=== PATIENT | male | born 1975 | race Hispanic/Latino ===

== ENCOUNTER 2019-07-05 10:30 | Inpatient (IN) | payer OTHER ==
[2019-07-05 10:55] LABS: #Eosinphils 0.1 thou/uL (0.0-0.7); #Lymphocytes 1.6 thou/uL (1.20-3.40); #Monocytes 0.8 thou/uL (0.11-0.59); #Neutrophils 6.8 thou/uL (1.40-6.50); %Basophils 0.5 % (0.0-1.0); %Eosinophils 1.3 % (0.0-10.0); %Lymphocytes 17.4 % (21.0-51.0); %Monocytes 8.2 % (0.0-10.0); %Neutrophils 72.6 % (42.0-75.0); Hemoglobin 15.7 g/dL (14.0-18.0); Mean Corpuscular HGB CONC 34.1 g/dL (32.0-36.0); Mean Corpuscular Hemoglobin 29.3 pg (27.0-31.0); Mean Corpuscular Volume 86.2 fL (78.0-98.0); Mean Platelet Volume 7.2 fL (7.4-10.4); Platelet Count 272 thou/uL (130-400); RBC Distribution Width 11.6 % (11.5-14.5); Red Blood Cell (RBC) Count 5.35 mill/uL (4.70-6.10); White Blood Cell (WBC) Count 9.3 thou/uL (4.8-10.8)
[2019-07-05 11:17] LABS: Acetaminophen Less than 6.0 mcg/mL (10.0-30.0); Alcohol Less than 10 mg/dL (Less than 10); Salicylate Less than 8.0 mg/dL (15.0-30.0)
[2019-07-05 11:18] LABS: ALT (SGPT) 14 U/L (8-55); AST (SGOT) 9 U/L (5-34); Albumin 4.2 g/dL (3.5-5.0); Alkaline Phosphatase 125 U/L (40-110); Anion Gap 11 mmol/L (10-20); BUN (Urea Nitrogen) 6 mg/dL (8.9-20.6); Bilirubin, Total 0.6 mg/dL (0.2-1.2); Calc. Creatinine Clearance 0 mL/min (70-130); Calcium 9.3 mg/dL (7.8-10.44); Carbon Dioxide 31 mmol/L (22-29); Chloride 102 mmol/L (98-107); Estimated GFR-MDRD Greater than 90; Globulin 2.8 g/dL (2.4-3.5); Glucose 103 mg/dL (70-105); Potassium 3.9 mmol/L (3.5-5.1); Sodium 140 mmol/L (136-145)
[2019-07-05 11:31] LABS: Bilirubin Negative (Negative); Blood, Urine Negative (Negative); Clarity Clear (Clear); Glucose, Urine (Dipstick) Normal (Negative); Leukocyte Negative Leu/uL (Negative); Nitrite Negative (Negative); Protein, Urine (Dipstick) Negative (Neg-Trace)
--- NOTE | 2019-07-05 11:38 | CT ---
CT head noncontrast HISTORY: Slurred speech. Weakness. Prior surgery. No comparison available. FINDINGS: A large ill-defined area of decreased density within the right cerebellar hemisphere and po sterior aspect of the right side of the jenaro results in distortion of the right side of the fourth ventricle. A central area of slightly increased density measures up to 3.7 cm. Postoperative changes of the left occiput, left mastoid area, and left cerebellar hemisphere evident. No acute intracranial hemorrhage is apparent. Right frontal ventriculostomy catheter extends into the right lateral ventricle. Ventricular system is decompressed. Septum pellucidum is midline. IMPRESSION: Postoperative changes of the posterior fossa. While the abnormality of the right cerebral hemisphere could be related to compensatory expansion due to volume loss of the left cerebellar hemisphere, the appearance is concerning for an underlying mass. Please consider MRI brain, without a nd with gadolinium contrast, for better characterization. Findings were called to Dr. Agustin in the emergency department at 1131 hours. Code CR.
[2019-07-05] MEDS ORDERED: Magnevist 469MG/ML 20 ML VIAL ONE (11:43)
[2019-07-05 11:50] LABS: Amphetamine Not Detected (NotDetected); Barbiturates Screen Not Detected (NotDetected); Benzodiazepine Screen Not Detected (NotDetected); Cocaine Metabolite Screen Not Detected (NotDetected); Medtox Control Line Valid? VALID (VALID); Medtox Reader # READER 4; Methadone Not Detected (NotDetected); Methamphetamine Not Detected (NotDetected); Opiate Screen Not Detected (NotDetected); Oxycodone Screen Not Detected (NotDetected); Phencyclidine (PCP) Not Detected (NotDetected); THC/Cannabinoid Screen Not Detected (NotDetected); Tricyclic Screen Not Detected (NotDetected)
--- NOTE | 2019-07-05 13:57 | MRI ---
MRI BRAIN WITH AND WITHOUT IV CONTRAST: HISTORY: Slurred speech. Increasing left sided weakness. The patient has a history of brain tumor and removal several years ago. CORRELATION: CT scan from the same date. FINDINGS: Postop changes in the left occipital mastoid and cerebellar region with a postop fluid collection are seen. There is right frontal ventriculostomy shunt tubing. There is a heterogeneously enhancing mass involving the right cerebellar hemisphere and right side of the jenaro, measuring 5.3 x 4 x 2.8 cm with enhancing small satellite nodules in the vermis. There are also tiny foci of contrast enhancement in the occipital lobe, likely vascular. The right cerebellar pontine mass has internal foci of T2 prolongation and surrounding vasogenic edema. No hydronephrosis is seen. IMPRESSION: Findings are consistent with tumor recurrence in the posterior fossa with mass effect on the fourth v entricle and mid brain. Discussed over the telephone with ER physician, Dr. Pietro Agustin, at 1:11 p.m. KIRAN CURRIE POS: TENZIN
--- NOTE | 2019-07-05 16:16 | PDOC.FPRHP ---
- History of Present Illness Chief Complaint: slurred speech History of Present Illness: Patient is a 43M with PMHx of HTN that presented to the ED for slurred speech. He states that he started to notice slurred speech about 1 month ago and it has gradually worsened, especially within the last 3 days. He also reports that feelings of unsteadiness on his feet began after his slurred speech, but it has also been exacerbated for the last 3 days as well. He explains it as talking "like I'm drunk" and walking "like I'm drunk." Reports associated dizziness, and recent posterior occipital headaches. Denies n/v/d. Denies incontinence, any new-onset motor or sensory deficits. Denies difficulty breathing or swallowing, though does report some swelling of his gums on the left. Reports gradual vision deficits over the past few months, but he is supposed to be wearing glasses and does not have them. Saw Dr. Morales at [facility] last month, where an MRI brain was ordered for symptoms of slurred speech. Patient reports that MRI is scheduled for next week. Per patient he had a cerebellar tumor removed 8 years ago in [place], though does not recall what anyone told him about the type of tumor. - Home Medications Medication Instructions Recorded Confirmed Type Amlodipine [Norvasc] 10 mg PO DAILY 07/05/19 07/05/19 History Lisinopril 5 mg PO DAILY 07/05/19 07/05/19 History Meclizine HCl 12.5 mg PO DAILY 07/05/19 07/05/19 History - History PMHx: HTN, HLD PSHx: cerebellar tumor removal 8 years ago FHx: no family hx of brain cancer Social: occasional etoh use, non-smoker, no drug use - Review of Systems General: denies: fever/chills, weight/appetite/sleep changes Eyes: reports: vision changes. denies: eye pain ENT: denies: nasal congestion, rhinorrhea Respiratory: denies: cough, shortness of breath Cardiovascular: denies: chest pain, edema Gastrointestinal: denies: nausea, vomiting, diarrhea Genitourinary: denies: incontinence, polyuria Skin: denies: jaundice, itching Musculoskeletal: denies: tenderness, stiffness Neurological: denies: syncope, seizure Psychological: denies: anxiety, depression - Vital signs [BP: 121/77] HR: [73] RR: [15] Tmax: [98.3] Pox: [93]% on [RA] Wt: [99.4kg] - Physical Exam Constitutional: NAD, awake, alert and oriented HEENT: EOMI, MMM Neck: supple, FROM Chest: no-tender to palpation, no lesions Heart: RRR, normal S1/S2 Lungs: CTAB, no respiratory distress Abdomen: soft, non-tender Musculoskeletal: normal structure, ROM grossly normal Neurological: normal sensation, other (decreased heel-dejesus left leg, poor finger -nose pass-pointing, good alternating movements) Skin: no rash/lesions, good turgor Heme/Lymphatic: no unusual bruising or bleeding, no purpura Psychiatric: normal mood and affect, good judgment and insight FMR H&P: Results - Labs Result Diagrams: 07/05/19 10:46 07/05/19 10:46 Lab results: WBC 9.3 thou/uL (4.8-10.8) 07/05/19 10:46 Hgb 15.7 g/dL (14.0-18.0) 07/05/19 10:46 Hct 46.1 % (42.0-52.0) 07/05/19 10:46 MCV 86.2 fL (78.0-98.0) 07/05/19 10:46 Plt Count 272 thou/uL (130-400) 07/05/19 10:46 Neutrophils % 72.6 % (42.0-75.0) 07/05/19 10:46 Sodium 140 mmol/L (136-145) 07/05/19 10:46 Potassium 3.9 mmol/L (3.5-5.1) 07/05/19 10:46 Chloride 102 mmol/L (98-107) 07/05/19 10:46 Carbon Dioxide 31 mmol/L (22-29) H 07/05/19 10:46 BUN 6 mg/dL (8.9-20.6) L 07/05/19 10:46 Creatinine 0.79 mg/dL (0.7-1.3) 07/05/19 10:46 Glucose 103 mg/dL (70-105) 07/05/19 10:46 Calcium 9.3 mg/dL (7.8-10.44) 07/05/19 10:46 Total Bilirubin 0.6 mg/dL (0.2-1.2) 07/05/19 10:46 AST 9 U/L (5-34) 07/05/19 10:46 ALT 14 U/L (8-55) 07/05/19 10:46 Alkaline Phosphatase 125 U/L (40-110) H 07/05/19 10:46 Serum Total Protein 7.0 g/dL (6.0-8.3) 07/05/19 10:46 Albumin 4.2 g/dL (3.5-5.0) 07/05/19 10:46 Urine Ketones Negative mg/dL (Negative) 07/05/19 10:51 Urine Blood Negative (Negative) 07/05/19 10:51 Urine Nitrite Negative (Negative) 07/05/19 10:51 Ur Leukocyte Esterase Negative Shannon/uL (Negative) 07/05/19 10:51 - Radiology Interpretation CT scan - head Status: report reviewed by me (postop changes of posterior fossa, right cerebral hemisphere changes suspicious for mass) MRI - head Status: report reviewed by me (tumor recurrence in the posterior fossa, mass effect on fourth ventricle and midbrain) FMR H&P: A/P - Problem List (1) Neoplasm of posterior cranial fossa Current Visit: Yes Status: Acute Code(s): D49.6 - NEOPLASM OF UNSPECIFIED BEHAVIOR OF BRAIN (2) HTN (hypertension) Current Visit: Yes Status: Chronic Code(s): I10 - ESSENTIAL (PRIMARY) HYPERTENSION (3) HLD (hyperlipidemia) Current Visit: Yes Status: Chronic Code(s): E78.5 - HYPERLIPIDEMIA, UNSPECIFIED - Plan Patient is a 43M with 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 Fernandez, consulted by ED physician; stated he would see physician in the am; appreciate recs -q2h neuro checks -no signs of edema on brain MRI, but if patient's neuro exam changes consider starting 4mg decadron TID #HTN -continue home meds #HLD -not on home meds at this time DVT ppx: SCDs Dispo: inpatient for neurologic monitoring, neurosx consult in am for possible sx Code: Full PCP: Jah DANIELS H&P: Upper Level - Plan Date/Time: 07/05/19 1616 I, Cricket Campbell pgy2, have evaluated this patient and agree with findings/ plan as outlined by production intern resident. Pertinent changes/additions are listed here. 43yo M with pmh of previous posterior fossa tumor s/p excision 5 years ago presents with 3 days of slurred speech. Was seen in outpt setting and had brain MRI scheduled. In ED MRI shows recurrence of tumor. On exam vitals are stable, neuro exam consistent with exam as documented by production intern above. Otherwise exam was unremarkable. Will admit to stroke unit. Kristin has been consulted from the ED. Will await his much appreciated recommendations. Otherwise will continue home medications for HTN and have neurochecks [id number]. If pt should begin to show signs of cerebral edema/neuro changes recommend decadron 4mg TID and notify neurosurg.
--- NOTE | 2019-07-05 17:03 | PRG ---
DATE OF SERVICE: 07/05/2019 CHIEF COMPLAINT: Headaches, slurred speech, disequilibrium in a patient with history of posterior fossa brain tumor. HISTORY OF PRESENT ILLNESS: Too Royal is a 43-year-old man who presented to our ER with at least 3 days of slurred speech, disequilibrium, and posterior headache. He states he had a brain tumor removed in [place], [place] about 8 years ago. He had been scheduled as an outpatient for an MRI, but this had not yet been accomplished. In the event, he presented to our ER with these above complaints with subsequent MRI findings of a recurrent posterior fossa tumor. He has been admitted for further workup and evaluation per Neurosurgery. OBJECTIVE: GENERAL: He is awake and alert. VITAL SIGNS: His blood pressure is 120/90, his pulse rate is 80 and regular, respirations are 18. He is afebrile. His room air O2 saturation is 94. EAR, NOSE, AND THROAT: No erythema or exudate. NECK: Supple. CARDIAC: Heart rhythm regular. No gallop or murmur noted. LUNGS: Clear. No rales or wheezes. ABDOMEN: Flat and soft without guarding, rebound, or rigidity. NEUROLOGIC: He has slurred speech. He has abnormal gait testing as well as abnormal cbfh-dq-[id number] testing and nqhnpq-tu-[id number] testing. His gait is staggering and wide-based. His Todd Coma Scale is 15. LABORATORY DATA: CBC: White count is 9300, hemoglobin 15.7, hematocrit 46.1, MCV of 86. Chemistry: Sodium 140, potassium 3.9, chloride 102, bicarb 31, BUN 6, creatinine 0.79. Brain MRI findings are consistent with a tumor recurrence in the posterior fossa with mass effect on the fourth ventricle and midbrain. Neurosurgery has been informed and will see the patient in the morning. ASSESSMENT: Recurrent brain tumor. PLAN: As above with neurosurgical consultation. No indication at this time for Decadron unless patient has a deterioration or severe headache. Job ID: [id number]
[2019-07-05] MEDS ORDERED: Acetaminophen 325 MG TAB PO PRN ×2 (18:19→18:55)
[2019-07-05] MEDS ORDERED: Ondansetron PF 4 MG/2 ML Vial IVP PRN (18:19)
[2019-07-05] MEDS ORDERED: Ondansetron ODT 4 MG TAB SL PRN (18:19)
[2019-07-05] MEDS ORDERED: Ondansetron ODT 4 MG TAB PO PRN (18:55)
[2019-07-05 19:17] VITALS: BMI 29.3
--- NOTE | 2019-07-06 05:23 | PDOC.FM ---
- Subjective Subjective: Patient doing well this morning. Motor and sensation intact. Patient continues to have slurred speech. Denies difficulty with breathing. Discussed plans for neurosurgery to come by today to discuss future plan of care, patient agreeable. - Objective Vital Signs & Weight: Vital Signs (12 hours) Temp Pulse Resp BP BP Pulse Ox 07/06/19 04:00 97.6 F 71 16 130/80 92 L 07/06/19 00:00 98.0 F 73 16 108/58 L 97 07/05/19 20:00 97.9 F 74 16 127/90 94 L 07/05/19 18:10 97.8 F 78 16 139/81 96 Weight Weight 98.146 kg Result Diagrams: 07/06/19 04:59 07/06/19 04:59 Phys Exam - Physical Examination Constitutional: NAD HEENT: moist MMs, sclera anicteric Neck: supple, full ROM Respiratory: no wheezing, clear to auscultation bilateral Cardiovascular: RRR, no significant murmur Gastrointestinal: soft, non-tender Musculoskeletal: no edema, pulses present Neurological: normal sensation, moves all 4 limbs slurred speech Psychiatric: normal affect, A&O x 3 Skin: no rash, normal turgor Dx/Plan (1) Neoplasm of posterior cranial fossa Code(s): D49.6 - NEOPLASM OF UNSPECIFIED BEHAVIOR OF BRAIN Status: Acute (2) HTN (hypertension) Code(s): I10 - ESSENTIAL (PRIMARY) HYPERTENSION Status: Chronic (3) HLD (hyperlipidemia) Code(s): E78.5 - HYPERLIPIDEMIA, UNSPECIFIED Status: Chronic - Plan Plan: Patient is a 43M with 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 Fernandez, consulted by ED physician; plans to see patient today; appreciate recs -q2h neuro checks -no signs of edema on brain MRI, neuro exam stable overnight; but if patient's neuro exam changes consider starting 4mg decadron TID #HTN -continue home meds #HLD -not on home meds at this time DVT ppx: SCDs Dispo: inpatient for neurologic monitoring, neurosx consult today for possible sx, appreciate recs Code: Full PCP: Jah
[2019-07-06 05:25] LABS: #Basophils 0.1 thou/uL (0.0-0.2); #Eosinphils 0.4 thou/uL (0.0-0.7); #Lymphocytes 2.8 thou/uL (1.20-3.40); #Monocytes 0.9 thou/uL (0.11-0.59); #Neutrophils 5.6 thou/uL (1.40-6.50); %Basophils 0.7 % (0.0-1.0); %Eosinophils 3.8 % (0.0-10.0); %Lymphocytes 28.7 % (21.0-51.0); %Monocytes 9.3 % (0.0-10.0); %Neutrophils 57.4 % (42.0-75.0); Hemoglobin 15.2 g/dL (14.0-18.0); Mean Corpuscular Hemoglobin 29.6 pg (27.0-31.0); Mean Corpuscular Volume 86.9 fL (78.0-98.0); Mean Platelet Volume 7.3 fL (7.4-10.4); Platelet Count 266 thou/uL (130-400); RBC Distribution Width 11.6 % (11.5-14.5); Red Blood Cell (RBC) Count 5.15 mill/uL (4.70-6.10); White Blood Cell (WBC) Count 9.7 thou/uL (4.8-10.8)
[2019-07-06 05:43] LABS: Anion Gap 9 mmol/L (10-20); BUN (Urea Nitrogen) 8 mg/dL (8.9-20.6); Calc. Creatinine Clearance 172 mL/min (70-130); Carbon Dioxide 32 mmol/L (22-29); Chloride 101 mmol/L (98-107); Estimated GFR-MDRD Greater than 90; Glucose 127 mg/dL (70-105); Potassium 3.7 mmol/L (3.5-5.1); Sodium 138 mmol/L (136-145)
[2019-07-06] MEDS: Lisinopril 5 MG TAB PO SCH (08:38)
[2019-07-06] MEDS: Amlodipine 10 MG TAB PO SCH (08:38)
--- NOTE | 2019-07-06 10:51 | PRG ---
DATE OF SERVICE: 07/06/2019 I have examined the patient. I have discussed the case with Dr. Joelle Cruz, and agree with her assessment and plan. Job ID: [id number]
--- NOTE | 2019-07-06 14:16 | CON ---
DATE OF CONSULTATION: REFERRAL: Family Medicine, Dr. Cruz. REASON FOR EVALUATION: Cerebellar lesion. HISTORY OF PRESENT ILLNESS: Too Royal is a pleasant 43-year-old gentleman, referred to our Neurosurgery Service because of new discovery of a right cerebellar lesion. Because there is some difficulty with cerebellar dysarthria, much of the information is obtained by his significant other who is at his bedside as well as records both in the [place] and the [facility]. 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 It was during his incarceration that he began experiencing some incoordination involving the left side of his body and was eventually sent for an ER evaluation at a [facility] in [place]. There, he was admitted and MR imaging revealed a contrast-enhancing lesion deep in the left cerebellar hemisphere. Because of the jail contract system, he was sent from [facility] to [facility] in [place] for further care. I do not have those records. I surmise from other imaging studies that he had a craniectomy at [facility] and removal of the left cerebellar lesion sometime in late September or October of 2014. Although, I am not privy to these records, I suspect there was some form of radiation and/or chemotherapy, but that is a guess. The patient does not remember. He does recall being in the inpatient rehabilitation facility for a week or more recovering from his operation. He does not recall whether he got radiation or chemotherapy. He does not recall the histopathological diagnosis. Words like astrocytoma and medulloblastoma and metastases are not ringing a hughes. After his craniectomy, tumor resection, rehabilitation, and other treatment, he went home rather than back to his jail facility. For the last 4 years, he has remained at home. He has not been able to be employed because of persistent cerebellar deficits. He was eventually able to walk without a walker and sometimes without a cane, but he remained unsteady. It is on top of this unsteadiness that he had some deterioration over the last 3 months to the point where it has become unsafe for him to walk. He also has some difficulty getting words out. Because of the new deficits, he was brought to our emergency department, where CT and MR examination revealed a contrast-enhancing lesion in the right cerebellar hemisphere that extended through the deep nuclei of the right cerebellum and into the middle cerebellar peduncle and the posterior aspect of the jenaro. The discovery of this new lesion prompted a neurosurgical consultation. Overnight, the steroids have helped. Mr. Royal is hungry and would like to eat. PAST MEDICAL HISTORY: 1. Left cerebellar tumor. 2. Hypertension. 3. Hyperlipidemia. PAST SURGICAL HISTORY: A left suboccipital craniectomy and tumor resection in September or October 2014 at [facility]. MEDICATIONS: 1. Amlodipine. 2. Lisinopril. 3. Meclizine. Currently on Decadron in the hospital. ALLERGIES: NO KNOWN DRUG ALLERGIES. FAMILY HISTORY: There is no family history of genetic tumor syndromes. SOCIAL HISTORY: Mr. Royal lives with a significant other. The two of them have been together for the last 3 years. He is not employed and is disabled from his previous cerebellar tumor and therapy. He does drink alcohol from [id number], but is denies any current drug use or nicotine exposure. He is a former hernandez of the [facility]. REVIEW OF SYSTEMS: Otherwise, negative. PHYSICAL EXAMINATION: GENERAL: Mr. Royal is 6 feet tall. He weighs 216 pounds. VITAL SIGNS: His temperature is 97.6 degrees Fahrenheit. His current blood pressure is 119/76. NEUROLOGIC: Mr. Royal is awake on his examination. He has a cerebellar dysarthria that prevents him from speaking in a coordinated fashion, but he does express some ideas well and a few words at a time. The visual lawrence are full. The extraocular muscles moves the eyes in all directions. The primary gaze with left and right and gaze nystagmus. The face is sensate and symmetric. There is hearing to finger rub bilaterally. The palate elevates in the midline. The Tongue protrudes in the midline. The head turn is strong. On motor examination, the large muscle groups are quite strong. There is incoordination with dysmetria that is significant on the right and less significant on the left. There is no neglect. There is no lateralizing sensory loss. IMAGING FINDINGS: On CT, there is evidence of a previous craniectomy on the left side. There is evidence of enlargement of the right cerebellar hemisphere with shift of midline structures. MR imaging shows contrast-enhancing lesion within the right cerebellar hemisphere including the deep nuclei, the middle cerebellar peduncle, and the posterior jenaro. IMPRESSION: 1. Posterior fossa tumor, second one in 4 years and 9 months. 2. Unknown pathology of previous cerebellar tumor. 3. Portions of right-sided tumor are unresectable. I had a long discussion with Mr. Royal and his significant other. The treatment of his right cerebellar lesion will depend greatly on the histopathology of his previous tumor. Although, there is significant mass effect. I am hesitant to resect the entire tumor because of its involvement of the brainstem. This would cause some significant and life-altering permanent neurological deficit and likely render him not a candidate for adjuvant therapy. I am not sure the tumor could come out partially, but that is one treatment possibility. Another would be a biopsy and radiation followed by chemotherapy. The fourth ventricle, thankfully, has plenty of room for to circulate CSF given the amount of resection of the left cerebellum in the past, although structures have shifted. There was not an imminent danger of obstructive hydrocephalus, thankfully. We have time to remain on Decadron, collect outside data and have our Oncology and Radiation Oncology Team way in on their thoughts for treatment before planning any invasive maneuvers. Job ID: [id number]
--- NOTE | 2019-07-07 05:11 | PDOC.FM ---
- Subjective Subjective: Mr. Royal is doing well this morning. He does not notice any new deficits, but continues to have slurred speech and difficulty walking. Discussed with patient that neurosurgery, onc, and rad onc will be working together on his case. Patient agreeable with current plan of care. - Objective Vital Signs & Weight: Vital Signs (12 hours) Temp Pulse Resp BP BP Pulse Ox 07/07/19 03:42 98.4 F 69 14 118/73 95 07/06/19 23:58 98.2 F 71 20 110/59 L 94 L 07/06/19 20:06 97.4 F L 75 14 121/69 97 07/06/19 20:00 97 Weight Weight 98.146 kg I&O: 07/05/19 07/06/19 07/07/19 06:59 06:59 06:59 Intake Total 610 480 Balance 610 480 Result Diagrams: 07/06/19 04:59 07/06/19 04:59 Phys Exam - Physical Examination Constitutional: NAD HEENT: moist MMs, sclera anicteric Neck: supple, full ROM Respiratory: no wheezing, clear to auscultation bilateral Cardiovascular: RRR, no significant murmur Gastrointestinal: soft, non-tender Musculoskeletal: no edema, pulses present Neurological: normal sensation, moves all 4 limbs slurred speech Psychiatric: normal affect, A&O x 3 Skin: no rash, normal turgor Dx/Plan (1) Neoplasm of posterior cranial fossa Code(s): D49.6 - NEOPLASM OF UNSPECIFIED BEHAVIOR OF BRAIN Status: Acute (2) HTN (hypertension) Code(s): I10 - ESSENTIAL (PRIMARY) HYPERTENSION Status: Chronic (3) HLD (hyperlipidemia) Code(s): E78.5 - HYPERLIPIDEMIA, UNSPECIFIED Status: Chronic - Plan Plan: Patient is a 43M with 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
--- NOTE | 2019-07-07 07:19 | PRG ---
DATE OF SERVICE: 07/07/2019 Records have come in from [facility] regarding his care in September and October of 2014. When I asked Mr. Royal he does remember being in the hospital. He had radiation for 5 -6 weeks following his hospitalization and he had a drug called temozolomide. He took that for about a year and then stopped. Overnight Mr. Royal has not noticed any new difficulties. The steroids are helping him, but he is not back to his baseline, according to his significant other who is in the room. Among the electronic vital signs I do not see any fevers recorded in the last 24 hours. His blood pressures have ranged between 110 and 130 since admission. On examination, Mr. Royal has some cerebellar dysarthria, some dysmetria, especially on the right side, both of which are stable to slightly improved with Decadron. I reviewed previous records. His tumor in the left cerebellum removed in 2014 was diagnosed as glioblastoma multiforme. There are some features consistent with gliosarcoma and it was an atypical case, but he was treated as glioblastoma. He did undergo radiation therapy and chemotherapy. He has not had treatment for 2-1/2 years. IMPRESSION: Glioblastoma, recurrent. I had a bre discussion with Mr. Royal and his significant other. Most of his left cerebellum has been removed with his tumor. That operation was complicated by postoperative hematoma that required a 2nd operation. He has had a significant insult to at least half of the cerebellum. The other half is now, also affected. This tumor extends into the middle cerebellar peduncle and to the jenaro. I cannot take that portion out. Even if I were to limit our resection to what is present in the cerebellum alone, it will give him permanent dysmetria and cerebellar ataxia. It may be unsafe for him to get out of bed. I am not sure he is going to regain that even with chemoradiotherapy, but I am more definitive about the permanent deficit with surgical intervention. Nonetheless, if he wants to be very aggressive about treatment, we can debulk as much as we can, wait 3 or 4 weeks for him to heal and then start adjuvant therapy. All of those 3 or 4 will likely be spent in inpatient rehabilitation and he may need continued physical therapy thereafter. Recurrent glioblastoma is typically even more aggressive than the 1st iteration of the tumor. Because of the recurrence, I do not believe this is found to have an immediately favorable outcome unfortunately. Mr. Royal and his significant other would like to speak with the oncologist and radiation oncologist today to help formulate a plan. I will be amenable to anything that is decided. If they opt for surgical intervention that could be done later this week. Job ID: [id number] MTDD
[2019-07-07] MEDS: Dexamethasone 4 mg/ml Vial SLOW IVP SCH ×3 (10:02→22:11)
[2019-07-07] MEDS: Amlodipine 10 MG TAB PO SCH (10:03)
[2019-07-07] MEDS: Lisinopril 5 MG TAB PO SCH (10:03)
--- NOTE | 2019-07-07 11:45 | CON ---
DATE OF CONSULTATION: 07/07/2019 REASON FOR CONSULTATION: Mr. Royal is a 43-year-old gentleman with a recurrent glioblastoma. HISTORY OF PRESENT ILLNESS: Mr. Royal apparently was in the correction system when he was diagnosed in 2014 with a glioblastoma of the left cerebellum. He apparently was treated in [place] for this. He underwent surgical resection, which apparently was complicated by a hemorrhage requiring a second operation. The pathology records that we have indicate that this was a grade 4 glioblastoma multiforme. There were apparently some unusual aspects to the tumor. He then apparently had postoperative treatment with chemotherapy and radiation. I do not have any of his radiation records. I only have a consultation note that indicated that he was soon to undergo simulation and treatment. Apparently after his chemotherapy and radiation, he was treated with chemotherapy for about a year. Likely this was with Temodar. He does not recall any specific information. He has done well since that time. He has been unable to work because of the residual cerebellar deficit. About a week ago, he states that he passed out and hit his head. Three days later, he began experiencing slurred speech and worsening of his coordination. He has also experienced some left-sided face numbness for the past 3 days. This led him to come to the emergency room where CT scan of the head was performed, followed by an MRI of the brain, which showed a contrast-enhancing lesion measuring 5.3 x 4 x 2.8 cm in the right side of the cerebellum. There are some enhancing small satellite nodules in the vermis. There were some tiny foci of contrast enhancement in the occipital lobe of unknown significance. There was also felt to be some involvement of the right side of the jenaro. There was some surrounding vasogenic edema. He has been seen by Neurosurgery and also placed on steroids. He has not had a whole lot of improvement since being on the steroids. I have been asked to see him to discuss his options. Presently, he denies any headaches or nausea or vomiting. He reports some left-sided weakness, although this may be more coordination issues. He denies any shortness of breath. He has no recent weight loss. He voices no other complaints. PAST MEDICAL HISTORY: 1. Glioblastoma as mentioned above, status post craniotomy, status post chemotherapy and radiation. 2. Hypertension. 3. Hypercholesterolemia. 4. He denies other medical or surgical problems. MEDICATIONS: 1. Amlodipine. 2. Lisinopril. 3. Meclizine. 4. Decadron. ALLERGIES: NO KNOWN MEDICAL ALLERGIES. SOCIAL HISTORY: He does live here in town with a significant other. He is disabled and unemployed because of his cerebellar tumor in therapy. He has no cigarette or alcohol use at the present time. FAMILY HISTORY: His mother in her late 50s from complication of diabetes. He does not know his father's side of his family history, although his father has . He is not aware of any family members with cancer. PHYSICAL EXAMINATION: VITAL SIGNS: Height 6 feet, weight 216 pounds. Blood pressure is 118/75, pulse is 69, respirations are 12, temperature is 97.5, O2 saturation 93% on room air. CONSTITUTIONAL: He is alert and oriented and in no apparent distress. His speech is slurred. He is well developed and well nourished. Karnofsky performance status is 60%. HEENT: Eyes; pupils are equal, round, and reactive to light and extraocular movements are intact. He does appear to have some slight nystagmus when looking to the left. ENT; oral cavity, oropharynx, no lesion or erythema. Palate elevates symmetrically. Tongue protrudes to midline. Gingiva is intact. NECK: Supple without cervical or supraclavicular lymphadenopathy. No thyromegaly. Larynx midline. LUNGS: Breathing nonlabored. Clear to auscultation and percussion. CARDIOVASCULAR: Heart, regular rate and rhythm without murmur. No lower extremity edema. BACK: No tenderness on fist percussion of his spine. LYMPHATIC: No axillary or inguinal adenopathy. ABDOMEN: Bowel sounds present. Soft, nontender, nondistended without mass or hepatosplenomegaly. SKIN: Without rash or purpura. NEUROLOGIC: Cranial nerves 2 through 12 are grossly intact. Motor strength is 5/5 in both upper and lower extremities in all muscle groups tested. Gait was not tested. However, he has significant dysmetria on [id number] testing on both the right and left side. Left is worse than the right. DIAGNOSTIC DATA: Radiologic; MRI of the brain was personally reviewed and again shows a contrast-enhancing lesion measuring 5.3 cm with some involvement of the right side of the jenaro. There also appears to be some small satellite nodules and possible involvement of the occipital lobe as well. He is missing much of his left cerebellum from his previous surgery. LABORATORY DATA: CBC showed white blood cell count 9700, hemoglobin 15.2, hematocrit 44.8, platelet count 266,000. Chemistry group showed normal electrolytes. His alkaline phosphatase is 125. Previous records from pathology indicate this was a grade 4 glioblastoma in 2015. ASSESSMENT: Mr. Royal is a 43-year-old gentleman who almost certainly has a recurrent glioblastoma, now involving the right cerebellum from his previous diagnosis of glioblastoma in 2015. We have some records, but not complete records from his previous treatment, although we do have records from his pathology and surgery. PLAN: I had a long discussion with Mr. Royal and his significant other regarding his present situation. We discussed the likely fact that this is a recurrent glioblastoma. I think this is unlikely to represent radiation necrosis given the length of time in the location of the contrast enhancement. Nevertheless, I do not have his specific radiation records. I do not have any records regarding dose of radiation they gave him or the dosimetry to indicate where all the treatment was given to. I will need to obtain these records as soon as possible. Options at this point for treatment could consist of either repeat surgical resection followed by perhaps some additional adjuvant therapy including chemotherapy and possibly radiation. Other options would be to forego surgery in favor of doing some either repeat chemotherapy and radiation. One of the difficulties would be what kind of deficit would he have after surgical excision. His prognosis is very poor and I explained to him that his survival is likely to be somewhat limited, typically less than a year in this situation. This will need to be factored into our decisions as well. If surgery would leave him with a fairly significant deficit, then in my opinion, it might not be worthwhile, especially since we know that a gross total resection is not able to be performed. If surgery would leave him with minimal deficit that can be recovered then it might be worthwhile to consider that option. At this point, I do not have his radiation records, so it is difficult to say for certain whether he can have a repeat course of radiation. I suspected that we probably can give him some additional radiation given the fact that this tumor is mostly on the opposite side of the brain than it was previous location and the fact that it has been 4 years since his original treatment. Even if we are able to give him additional radiation, we could not give him full-dose radiation most likely. Again, I will need to obtain all the specific records from the radiation department in [place] to further delineate his options with radiation therapy. At best, however, radiation would be to try and slow his tumor down and by him, perhaps a few additional months along with perhaps some better quality of life over that time. The third option would be to pursue additional chemotherapy without doing radiation. Again, all these options are going to be palliative. I am going to try and obtain the specific radiation records that I need so that this can further into our decision making. Once he has been evaluated by Medical Oncology, I think that Dr. Fernandez, Neurosurgery and myself and Medical Oncology can discuss the case and try to formulate the best plan of action for treatment. Time was taken to answer questions at this time. His significant other does think that they have some records from his treatment and she is going to try to obtain those for me. I doubt she has specific radiation records that I need, so we will work on obtaining those from [place] as well. Further recommendations will be made once we have those records. Thank you for this interesting consultation. Job ID: [id number] ELISABETH
--- NOTE | 2019-07-07 15:24 | PRG ---
DATE OF SERVICE: 07/07/2019 ADDENDUM: Addendum to the note of Dr. Joelle Cruz. I have examined the patient and discussed the case with Dr. Joelle Cruz. I agree with her assessment and plan. Mr. Royal has also been seen in consultation by the neurosurgeon, who reviewed the [facility] records. It is evident that Mr. Royal has a recurrent glioblastoma that has already spread distal to the cerebellum. His prognosis is poor. Dr. Fernandez did discuss treatment options with Mr. Royal and his significant other and also has consulted Oncology and Radiation Oncology to visit with the patient to formulate a plan. Job ID: [id number]
--- NOTE | 2019-07-07 20:57 | CON ---
DATE OF CONSULTATION: REASON FOR CONSULTATION: Recurrent glioblastoma. HISTORY OF PRESENT ILLNESS: Mr. Royal is a 43-year-old gentleman, who was diagnosed with glioblastoma of the left cerebellum in 2015. He was incarcerated at this time. He apparently underwent surgical resection and then required a second operation for hematoma evacuation. He had a chemotherapy and radiation. He states he took the pills, likely Temodar, which he continued for about a year. Since that time, he has been doing well until approximately 1 week ago when he began to have slurred speech, difficulty walking. He apparently passed out. He was brought to the emergency room, where he underwent imaging of his brain. It showed a 5.3 x 4 x 2.8 cm on the right side of the cerebellum. There were small satellite nodules, some surrounding vasogenic edema. He was started on steroids and admitted for further workup. He was seen by Neurosurgery, who discussed surgical options, but unfortunately will likely to leave him with significant deficit. We were asked to see the patient for treatment options. The patient denies any headaches, blurred vision, or dysphagia. No chest pain, shortness of breath, or abdominal discomfort. PAST MEDICAL AND SURGICAL HISTORY: 1. Grade 4 glioblastoma multiforme, status post resection and chemoradiation. 2. Hypertension. 3. High cholesterol. ALLERGIES: NO KNOWN DRUG ALLERGIES. HOME MEDICATIONS: 1. Amlodipine 10 daily. 2. Famotidine 20 daily. 3. Lisinopril 5 mg daily. 4. Meclizine 12.5 mg daily. FAMILY HISTORY: Brother had GBM. SOCIAL HISTORY: , lives in [place]. No alcohol, tobacco, or illicit drug use. REVIEW OF SYSTEMS: A 10-point review of systems is negative except for noted in HPI. PHYSICAL EXAMINATION: VITAL SIGNS: Temperature 99.0, pulse 70, respiratory rate 18, BP is 124/75, O2 saturation is 93% on room air. GENERAL: This is a well-developed, well-nourished male, in no acute distress. HEENT: Normocephalic, atraumatic. Pupils are equal and reactive to light. NECK: Supple. CV: Regular rate and rhythm. LUNGS: Clear. ABDOMEN: Soft and nontender. Bowel sounds are positive. EXTREMITIES: There is no clubbing or cyanosis. SKIN: No rash. HEMATOLOGICAL: No petechiae or purpura. NEUROLOGICAL: He has 5/5 strength, slurred speech. PERTINENT LABS AND X-RAYS: Current WBCs are 9.7, hemoglobin 15.2, hematocrit 44.8, platelet count is 266,000, he has 57% neutrophils, 28% lymphocytes. Sodium 138, potassium 3.7, chloride 101, CO2 is 32, BUN is 8, creatinine is 0.76, calcium 9, bilirubin 0.6, AST is 9, ALT 14, alkaline phosphatase is 125. Serum total protein 7, albumin 4.2, globulin 2.8. Brain MRI per HPI. ASSESSMENT: Recurrent glioblastoma multiforme. DISCUSSION: The patient has been seen by Neurosurgery, who feels that surgery would leave him with significant deficit. He has also been seen by Dr. Garcia with Radiation Oncology. We await medical records from his prior treatment. He may be a candidate for radiation and Temodar. If he is not a candidate for radiation, he could take Temodar and steroids or other chemotherapy including Avastin or rincon-based regimen. We will await medical records and discuss further. Case has been discussed with Dr. Collado and Dr. Garcia. Thank you for the consult. Job ID: [id number]
--- NOTE | 2019-07-08 05:14 | PDOC.FM ---
- Subjective Subjective: Patient doing well this morning. He reports that his speech and balance have improved on steroids. They have discussed plans of care with neurosurgery, oncology, and radiation oncology and are hopeful at this point to pursue radiation/chemo. They are awaiting another discussion with Dr. Garcia from radiation oncology after he has the opportunity to obtain and review the records from his last tumor removal in 2014. They are also hopeful to continue PT and go to inpatient rehab for further conditioning. - Objective Vital Signs & Weight: Vital Signs (12 hours) Temp Pulse Resp BP BP Pulse Ox 07/08/19 03:35 97.8 F 71 18 113/66 94 L 07/07/19 23:59 97.7 F 81 16 114/68 94 L 07/07/19 20:00 98 F 104 H 18 119/72 93 L Weight Weight 98.146 kg I&O: 07/06/19 07/07/19 07/08/19 06:59 06:59 06:59 Intake Total 610 480 Balance 610 480 Result Diagrams: 07/06/19 04:59 07/06/19 04:59 Phys Exam - Physical Examination Constitutional: NAD HEENT: moist MMs, sclera anicteric Neck: supple, full ROM Respiratory: no wheezing, clear to auscultation bilateral Cardiovascular: RRR, no significant murmur Gastrointestinal: soft, non-tender Musculoskeletal: no edema, pulses present Neurological: moves all 4 limbs slurred speech, improved; uncoordinated finger pass-pointing Psychiatric: normal affect, A&O x 3 Skin: no rash, normal turgor Dx/Plan (1) Neoplasm of posterior cranial fossa Code(s): D49.6 - NEOPLASM OF UNSPECIFIED BEHAVIOR OF BRAIN Status: Acute (2) HTN (hypertension) Code(s): I10 - ESSENTIAL (PRIMARY) HYPERTENSION Status: Chronic (3) HLD (hyperlipidemia) Code(s): E78.5 - HYPERLIPIDEMIA, UNSPECIFIED Status: Chronic - Plan Plan: Patient is a 43M with PMHx of prior cerebellar tumor that was removed in 2014, HTN, HLD that is being admitted for posterior fossa tumor #Posterior fossa tumor -patient has had slurred speech for approx 1 month, worsening over last 3 days; unsteadiness on his feet -Brain CT: postop changes of posterior fossa, right cerebral hemisphere changes suspicious for mass -Brain MRI: tumor recurrence in the posterior fossa, mass effect on fourth ventricle and midbrain -Neurosurgery, Dr. Fernandez, consulted by ED physician; appreciate recs -working with onc/radiation onc to determine best course of treatment at this time -appears to be recurrent GBM and at this time would likely leave the patient with significant deficits if surgically removed, which apparently has been discussed with the patient -Awaiting radiation records from prior treatment to help determine possible plans of action -Patient to continue working with PT/OT, post-acute screen in for possible inpatient rehab pending recommendations from rad onc/onc -q2h neuro checks -4mg decadron TID #HTN -continue home meds #HLD -not on home meds at this time DVT ppx: SCDs Dispo: inpatient for neurologic monitoring, neurosx consulted, appreciate recs; oncology consulted, appreciate recs; radiation oncology consulted, appreciate recs Code: Full PCP: Jah
--- NOTE | 2019-07-08 07:12 | PRG ---
DATE OF SERVICE: 07/08/2019 I saw Too Royal in his hospital room this morning. He is visited by Dr. Garcia yesterday afternoon and Nava Medrano of the Oncology Service in the late afternoon. Dr. Garcia is requesting more records from [facility] regarding dosimetry during his previous treatment. Dr. Collado is the medical oncologist of record on the case and he has spoken to Nava about details. Yesterday and today, Mr. Royal still notices some improvement with steroids during this hospitalization. He was unsafe for activities of daily living at home and that is why he came to the hospital. He is now up on a walker. His baseline left- sided incoordination is stable. The right side has improved slightly with steroids. Overnight, I do not see any fevers recorded. Blood pressures have been in the 110s. Mr. Royal wakes up easily this morning. His speech is a bit more fluent, although there is some cerebellar hesitancy. There is right-sided dysmetria infusing [id number] and there is some incoordination I see when he uses his television remote. ASSESSMENT: 1. Cerebellar glioblastoma treated in September and October in 2014. 2. Recurrence in the contralateral cerebellum, deep cerebellar nuclei, and brainstem. Mr. Royal and his significant other wants to know what the deficits would be after surgery. It is difficult to predict, but I would anticipate that an aggressive resection removing the entire lesion would leave him with lower cranial nerve deficits that are permanent on the right side and such severe incoordination that he would be unsafe for activities of daily living. A partial resection could be problematic from bleeding, as many tumor vessels cannot be controlled until the entire lesion is out. At times, we can safely remove a part of the lesion, but it is hard to predict until we were in the operating room. Even in the best case scenario, I think the surgery on the right cerebellum after the much of the left cerebellum is removed, would adversely affect his coordination to the point he would need at least a month of rehabilitation before he is safe for any of his activities of daily living independently. This may equal the exact amount of longevity offered by surgical resection. These are difficult decisions to make, and I will proceed with the plan the patient likes best. Job ID: [id number] [facility]
[2019-07-08] MEDS: Lisinopril 5 MG TAB PO SCH (09:47)
[2019-07-08] MEDS: Dexamethasone 4 mg/ml Vial SLOW IVP SCH ×3 (09:48→21:30)
[2019-07-08] MEDS: Amlodipine 10 MG TAB PO SCH (09:48)
--- NOTE | 2019-07-08 10:58 | PRG ---
DATE OF SERVICE: 07/08/2019 ADDENDUM: I have examined the patient. Discussed the case with Dr. Joelle Cruz. I agree with her assessment and plan. Oncology and radiotherapy have both evaluated Mr. Royal. We are awaiting a treatment plan and/or possible transfer to [facility]. Mr. Royal is in no distress. In fact, appears more lucid and at ease after being on the steroids for several days. Job ID: [id number]
--- NOTE | 2019-07-08 11:28 | PQF ---
KIMBERLEEJOSE MANUEL NIKKI, MD *r [id number] [facility] [place] [id number] CLINICAL DOCUMENTATION IMPROVEMENT CLARIFICATION FORM: ICD-10 Updated PLEASE DO AN ADDENDUM TO THE PROGRESS NOTE WITH ANY DOCUMENTATION UPDATES OR ADDITIONS AND CARRY THROUGH TO DC SUMMARY. THANK YOU. DATE: 07/08/19 ATTN: Dr. Cruz Please exercise your independent, professional judgment in responding to the clarification form. Clinical indicators are provided on the bottom of this form for your review Please check appropriate box(s): Conflicting documentation was noted in the Medical Record, please clarify if patient is being treated/monitored for: [ ] No edema of brain (diagnosis #1) [x] Vasogenic edema (diagnosis #2) [ ] Other diagnosis [ ] Unable to determine In addition, please specify: Present on Admission (POA): [x] Yes [ ] No [ ] Unable to determine For continuity of documentation, please document condition throughout progress notes and discharge summary. Thank You. CLINICAL INDICATORS - SIGNS / SYMPTOMS/ LABS / RESULTS AND LOCATION IN EMR H&P(Anthony): "neoplasm of posterior cranial fossa"-no signs of edema on brain MRI " 07/05 MRI Brain: Tumor recurrence in the posterior fossa with mass effect on the fourth ventricle and midbrain. 07/08 Jim: "Yesterday and today, Mr Royal still notices some improvement with steroids. The right side has improved slightly with steroids" 07/05 [place]: "3 days slurred speech, disequilibrium, and posterior headache" "vasogenic edema" per 07/07 Jose RISK FACTORS / RESULTS AND LOCATION IN EMR 07/07 Jim: "Glioblastoma, recurrent" TREATMENT / RESULTS AND LOCATION IN EMR Neurosurgery consult 07/05 orders Q2h neuro checks 07/05 per orders Decadron 4mg IV TID 07/07 to date per orders (This form is maintained as a part of the permanent medical record) 2014 [employer]. All Rights Reserved Ximena Salvador, RN, BSN, CCDS [email or web address]
--- NOTE | 2019-07-08 13:18 | PDOC.PALCO ---
Palliative Care Consult - Consult Details Requesting Physician: Dr Cruz Reason for Consult: goals of care, family support Family Members Present: Patient - Pertinent HPI Patient with tumor removed 8 or more years ago from his brain, does not recall any specifics. Presented to the [facility] clinic for slurred speech late 2018 and MRI was ordered, and to be done. Patient had progressing slurred speech, dizziness, and post occipital headaches that were not relieved by anything three days prior to presentation to the emergency room. Emergency room evaluation identified neoplasm of posterior cranial fossa with consult from neuro and oncology - Pertinent PMH Cerebral mass removed years ago, HTN - Social History Smoking Status: Never smoker Smoking: no tobacco exposure Alcohol Use: occasional Drug Use History: none Living Situation: - Medications MAR Reviewed: Yes - Allergies Allergies/Adverse Reactions: Allergies Allergy/AdvReac Type Severity Reaction Status Date / Time No Known Allergies Allergy Unverified 07/05/19 18:18 - Subjective Denies pain, tearful and overwhelmed with recent diagnosis. - ROS Constitutional: alert Eyes: other (denies visual disturbances) ENT: other (denies difficulity swallwing, congestion) Respiratory: other (Denies cough, shortness of breath or difficulity swallowing ) Cardiology: other (denies chest discomfort, palpitations ) Gastrointestinal: other (Denies constipation, nausea, vomiting) Genitourinary: other (denies frequency or incontinence) Neurological: change in speech Skin: other (denies rash, lesions, puritis) - Objective Vital Signs: Vital Signs - Most Recent Temp Pulse Resp BP Pulse Ox 97.6 F 76 16 114/66 93 L 07/08/19 11:20 07/08/19 11:20 07/08/19 11:20 07/08/19 11:20 07/08/19 11:20 Palliative Performance Scale: 60 - Advance Directives Medical Power of Agricultural Equipment Salesperson: - Physical Exam Constitutional: NAD HEENT: EOMI, moist MMs, PERRLA, sclera anicteric Respiratory: clear to auscultation bilateral, unlabored breathing Cardiovascular: RRR Gastrointestinal: continent, non-tender, positive bowel sounds Genitourinary: continent Musculoskeletal: no cyanosis, no clubbing Neurology: moves all 4 limbs Deviation from normal: slurred speech Skin: cap refill <2 seconds, no lesions, no rash Psychiatric: A&O x 3 - Problem List (1) Palliative care encounter Code(s): Z51.5 - ENCOUNTER FOR PALLIATIVE CARE Current Visit: Yes Status: Acute (2) Neoplasm of posterior cranial fossa Code(s): D49.6 - NEOPLASM OF UNSPECIFIED BEHAVIOR OF BRAIN Current Visit: Yes Status: Acute (3) HLD (hyperlipidemia) Code(s): E78.5 - HYPERLIPIDEMIA, UNSPECIFIED Current Visit: Yes Status: Chronic (4) HTN (hypertension) Code(s): I10 - ESSENTIAL (PRIMARY) HYPERTENSION Current Visit: Yes Status: Chronic - Plan/Recommendations Plan: General life review, patient has been to his for 4 years, he has children from previous relationship. Tearful. Reviewed current diagnosis, patient states he wants to pursue aggressive measures at this time and remain with all resuscitation measures in place. Discussed diagnosis and associated symptoms. Patient states that it is attempting to be arranged for him to follow up at [facility] for management of recurrent glioblastoma multiforme. *Encouraged patient and his to discuss his wishes for health care in the event a decline occurs and he is not able to voice his wishes. *Spiritual care to see patient [75] minutes spent on this encounter with >50% of the time in counseling and coordination of care. Thank you for this very appropriate consult.
--- NOTE | 2019-07-08 15:56 | PDOC.MOPN ---
Interval History: feels better today. sat in chair. - Vital Signs Vital Signs: Vital Signs (12 hours) Temp Pulse Pulse Pulse Resp BP BP 07/08/19 13:49 90 93 133/74 115/76 07/08/19 11:20 97.6 F 76 16 07/08/19 09:48 73 07/08/19 09:47 73 07/08/19 07:47 97.7 F 76 18 BP Pulse Ox 07/08/19 13:49 07/08/19 11:20 114/66 93 L 07/08/19 09:48 07/08/19 09:47 07/08/19 07:47 126/73 95 Weight Weight 216 lb 6 oz - Physical Exam General: Alert Lungs: Clear to auscultation Cardiovascular: Regular rate Abdomen: Normal bowel sounds Extremities: No clubbing, No cyanosis, No edema, Normal pulses, No tenderness/ swelling Skin: No rashes, No breakdown, No significant lesion Neurological: Other (slurred speech) - Labs Result Diagrams: 07/06/19 04:59 07/06/19 04:59 Status: lab reviewed by me A/P - Problem (1) Glioblastoma Current Visit: Yes Code(s): C71.9 - MALIGNANT NEOPLASM OF BRAIN, UNSPECIFIED Status: Acute - Plan Plan: Discussed with Dr. Garcia. await treatment summary of prior treatments from [facility]. No planned inpatient transfer to [facility]. Patient has a medicaid that is not accepted locally and will have to find medical oncologist in insurance coverage area. may be able to get radiation locally
--- NOTE | 2019-07-09 05:18 | PDOC.FM ---
- Subjective Subjective: Patient doing well this morning, continues to improve with steroids. Patient plans to pursue radiation/chemotherapy at this time before/possibly instead of neurosurgery. Per chemo report patient's insurance does not cover chemotherapy locally. Uncertain of radiation coverage at this time. Still waiting on radiation records. - Objective Vital Signs & Weight: Vital Signs (12 hours) Temp Pulse Resp BP Pulse Ox 07/09/19 03:58 97.9 F 66 16 107/67 93 L 07/08/19 23:46 97.5 F L 73 16 118/63 92 L 07/08/19 20:50 93 L 07/08/19 19:51 97.7 F 82 16 120/63 92 L Weight Weight 98.146 kg I&O: 07/07/19 07/08/19 07/09/19 06:59 06:59 06:59 Intake Total 480 840 Balance 480 840 Result Diagrams: 07/06/19 04:59 07/06/19 04:59 Phys Exam - Physical Examination Constitutional: NAD HEENT: moist MMs, sclera anicteric Neck: supple, full ROM Respiratory: no wheezing, clear to auscultation bilateral Cardiovascular: RRR, no significant murmur Gastrointestinal: soft, non-tender Musculoskeletal: no edema, pulses present improved finger pass pointing, R>L, improved dysarthria Psychiatric: normal affect, A&O x 3 Skin: no rash, normal turgor Dx/Plan (1) Neoplasm of posterior cranial fossa Code(s): D49.6 - NEOPLASM OF UNSPECIFIED BEHAVIOR OF BRAIN Status: Acute (2) HTN (hypertension) Code(s): I10 - ESSENTIAL (PRIMARY) HYPERTENSION Status: Chronic (3) HLD (hyperlipidemia) Code(s): E78.5 - HYPERLIPIDEMIA, UNSPECIFIED Status: Chronic - Plan Plan: Patient is a 43M with PMHx of prior cerebellar tumor that was removed in 2014, HTN, HLD that is being admitted for posterior fossa tumor #Posterior fossa tumor -patient has had slurred speech for approx 1 month, worsening over last 3 days; unsteadiness on his feet -Brain CT: postop changes of posterior fossa, right cerebral hemisphere changes suspicious for mass -Brain MRI: tumor recurrence in the posterior fossa, mass effect on fourth ventricle and midbrain -Neurosurgery, Dr. Fernandez, consulted by ED physician; appreciate recs -working with onc/radiation onc to determine best course of treatment at this time -appears to be recurrent GBM and at this time would likely leave the patient with significant deficits if surgically removed, which apparently has been discussed with the patient -Awaiting radiation records from prior treatment to help determine possible plans of action -Patient to continue working with PT/OT, post-acute screen in for possible inpatient rehab pending recommendations from rad onc/onc -Per onc notes, no planned [facility] transfer and his medicaid is not accepted locally so he will need to find a medical oncologist in a insurance coverage area, though may be able to get radiation locally -will have CM look into CM coverage of radiation locally, or possibly options for chemo/radiation in surrounding areas -4mg decadron TID #HTN -continue home meds #HLD -not on home meds at this time DVT ppx: SCDs Dispo: inpatient for neurologic monitoring, currently awaiting previous radiation records; CM to help with financial outlook Code: Full
--- NOTE | 2019-07-09 07:52 | PRG ---
DATE OF SERVICE: 07/09/2019 Mr. Royal has been visited by the Medical Oncology Service yesterday. They looked into insurance arrangements and found that his Medicaid product specifically covers Oncology Services, but not in our County. This is problematic for his care here. In addition to this, Mr. Royal and his significant other have been thinking about our discussions on treatment of his recurrent tumor. They are not excited about repeat operation. Given the risk associated with it and the length of rehab that may be required following this surgery and the depth of the tumor. I think it is a reasonable decision to try chemoradiotherapy. There are no fevers recorded among the electronic vital signs. Blood pressures have been between the 100s and 120s. Mr. Royal's neurological examination is improving. His speech is more fluent, but it is still halting. There are cerebellar deficits on both sides, worse on his right side. The balance is compromised, but he has been up with a walker. ASSESSMENT: Glioblastoma in the cerebellum, recurrent. I am going to lean on our home health care social worker to identify facilities at which he can have care for his lesion. I think surgical intervention would require weeks of inpatient rehabilitation before adjuvant therapy could be started, it may render his performance status poor enough that he cannot have his adjuvant therapy at least temporarily. I think he has made a widest decision to try a chemoradiotherapy as frontline treatment for this recurrence. If he and his significant other change their mind about surgical intervention, I would be more than happy to perform a craniotomy and resect safely as much tumor as possible from the right cerebellum, but that is not their wish currently. I will have my office call in a few weeks time to see how his therapy is going. We will make arrangements to see me with a new MRI scan at the completion of his radiation. Job ID: [id number]
[2019-07-09] MEDS: Amlodipine 10 MG TAB PO SCH (08:14)
[2019-07-09] MEDS: Dexamethasone 4 mg/ml Vial SLOW IVP SCH ×2 (08:15→14:45)
[2019-07-09] MEDS: Lisinopril 5 MG TAB PO SCH (08:15)
--- NOTE | 2019-07-09 08:47 | PRG ---
DATE OF SERVICE: 07/09/2019 SUBJECTIVE: Mr. Royal is doing about the same. Neurologically, he has no new complaints. He is having no headaches or nausea or vomiting. OBJECTIVE: VITAL SIGNS: Height 6 feet, weight 216 pounds. Blood pressure 119/66, pulse is 63, respirations 16, temperature 97.9, and O2 saturations 93% on room air. CONSTITUTIONAL: He is alert and oriented and in no apparent distress. Karnofsky performance status is 60%. NEUROLOGICAL: He is unchanged. ASSESSMENT: Mr. Royal is a 43-year-old gentleman with recurrent glioblastoma, who is status post surgery and chemotherapy and radiation in 2015 in [place]. PLAN: I am still trying to obtain the dosimetry and treatment records from his radiation treatment in [place] from 2014. We have not yet received those. We will again call and try again today to get those dosimetry records. Nevertheless, I am reasonably certain that we could do a second course of radiation therapy, although the radiation would likely be limited. This could be given with chemotherapy or alternatively, we could do radiation followed by chemotherapy. He did visit with Dr. Fernandez yesterday and per the patient and significant other at this time, they were less inclined towards surgery. It is my understanding that his radiation is covered here at [facility] by his insurance policy. The biggest difficulty we have right now is the fact that there is no medical oncologist here in [facility], who takes his insurance. The case workers and significant other are actively trying to find a place where he can receive Medical Oncology Services. We will again try to obtain records today and more definitive recommendations can be made after that. However, I do feel we likely could do a limited course of radiation therapy. I again explained to the patient and significant other that this would be to try and slow the tumor down, not cured. His overall prognosis is very poor. Job ID: [id number]
--- NOTE | 2019-07-09 11:04 | PRG ---
DATE OF SERVICE: 07/09/2019 Mr. Royal is sitting quietly in bed, in no distress. He will likely be able to be discharged later to follow up with Radiation Oncology and Oncology for radiation therapy and chemotherapy. We will have Case Management help us with the details including transportation to and from chemotherapy and radiation sessions. This is all explained to Mr. Royal and his significant other and they are in agreement. Job ID: [id number]
[2019-07-09 15:41] VITALS: BP 116/58; TEMP 97.9
--- NOTE | 2019-07-11 10:13 | DIS ---
DATE OF ADMISSION: 07/05/2019 DATE OF DISCHARGE: 07/09/2019 ADMITTING RESIDENT: Joelle Cruz MD ADMITTING ATTENDING: Jason Perez MD DISCHARGE RESIDENT: Joelle Cruz MD DISCHARGE ATTENDING: Jason Perez MD CONSULTS: Neurosurgery (Dr. Fernandez), Oncology (Dr. Stubbs), Radiation Oncology (Dr. Garcia), PT, OT, Case Management. PROCEDURES: None. IMAGIN. Brain CT: Postoperative changes in the posterior fossa. While the abnormality of the right cerebral hemisphere could be related to compensatory expansion due to volume loss of the left cerebellar hemisphere, the appearance is concerning for an underlying mass. Please consider MRI brain with and without gadolinium contrast for better characterization. 2. Brain MRI: Findings are consistent with tumor recurrence in the posterior fossa with mass effect on the fourth ventricle and mid brain. SECONDARY DIAGNOSES: Hypertension and hyperlipidemia. DISCHARGE MEDICATIONS: 1. 10 mg amlodipine p.o. daily. 2. 4 mg decamethasone p.o. t.i.d. 3. 20 mg famotidine p.o. daily. 4. 5 mg lisinopril p.o. daily. 5. 12.5 mg of meclizine p.o. t.i.d. p.r.n. DISCONTINUED MEDICATIONS: 4 mg of dexamethasone IV. HISTORY OF PRESENT ILLNESS/HOSPITAL COURSE: The patient is a 43-year-old male with past medical history of a cerebellar tumor that was removed in 2014, presented with slurred speech that had been worsening throughout the last month, especially within the last 3 days prior to presentation. He had also reported decreased balance and increased unsteadiness on his feet. He denied any issues with swallowing or with creatinine at that time. Upon admission, Neurosurgery was consulted, who recommended consulting Oncology and Radiation Oncology, who were both consulted at that time. The patient was started on 4 mg dexamethasone IV t.i.d. per Neurosurgery recommendations. Dr. Fernandez consulted on the patient throughout his hospitalization, and after discussing with the patient his recommendations and the outcomes of possible surgical resection, he recommended that the patient continued to follow along with Radiation Oncology and Oncology as resection of the tumor would likely leave him with profound deficits. The patient and significant other made it clear that they would like to try chemotherapy and radiation first at this time. He recommended followup with him in his office within a few weeks to see how therapy is going and arrangement for imaging to further discuss any possibilities of surgical resection. Dr. Garcia had also consulted on the patient from Radiation Oncology and he is actively trying to obtain the dosimetry records from his radiation treatment in [place] in 2014. He recommended that the patient could go home and follow up in his clinic to discuss radiation options at that time. Medical Oncology also consulted and discussed chemotherapy options with him, though the insurance would not cover any Oncology visits within this area and it was suggested that the patient work with his insurance to find the oncologist in the surrounding area that they would cover. Dr. Garcia thought his radiation would be covered by his insurance policy though this is still uncertain at this time. This was all discussed with the patient on the day of discharge and the patient was agreeable with being discharged and following up with Dr. Garcia in clinic in a few days to discuss his further treatment plans and recommendations. It was noted in both Neurosurgery and Radiation Oncology notes that the patient 's overall prognosis is likely very poor. It was discussed with the patient by Dr. Fernandez that he likely has 3 to 6 months expected life expectancy. Palliative Care was also consulted on this patient and had a long discussion with the patient about goals of care to which the patient and his significant other had decided that they do want to pursue radiation and chemotherapy at this time and to be aggressive with this treatment. Physical Therapy and Occupational Therapy did work with the patient during the hospitalization and they had recommended possible rehab. It was arranged for the patient to do outpatient PT and OT and it was also arranged for the patient to have transportation under his Medicaid in order to have transportation to both his physical therapy and his Radiation/Oncology appointments. It was also arranged for the patient to have a rolling walker at home for him. The patient was agreeable with the plans of care at that time. DISPOSITION: Guarded. DISCHARGE INSTRUCTIONS: Location: Home with outpatient PT and OT. Diet: Heart healthy. Activity: Walking with assistance. Followup: Follow up with Dr. Shannan Morales in 7 days, and Dr. Garcia in 2 to 3 days, and with outpatient physical and occupational therapy as directed. Job ID: [id number] MTDD
== END 2019-07-09 16:45 | disposition home or self-care (01) | DRG 54 ==
LOC: ERS 10:30 → 2SE 15:31
PROVIDERS: ADMIT Family Medicine; ATTEND Family Medicine
DX: C71.6 Malignant neoplasm of cerebellum (principal); G93.6 Cerebral edema; I10 Essential (primary) hypertension; R47.81 Slurred speech; E78.5 Hyperlipidemia, unspecified; E78.00 Pure hypercholesterolemia, unspecified; Z51.5 Encounter for palliative care; Z91.013 Allergy to seafood; Z79.899 Other long term (current) drug therapy
CPT/HCPCS: 36415; 70450; 70553; 80048; 80053; 80306; 80307; 81003; 85025; A9579; J1100